=== PATIENT | female | born 1970 | race Caucasian/White ===

== ENCOUNTER 2019-01-18 17:31 | Emergency (ER) | payer SELFPAY ==
[2019-01-18] MEDS: IBUPROFEN 200 MG TAB PO (19:44)
[2019-01-18] MEDS: ACETAMINOPHEN 325 MG TAB PO (19:44)
== END 2019-01-18 20:51 | disposition home or self-care (01) ==
LOC: FTE 17:31
DX: S63.601A Unspecified sprain of right thumb, initial encounter (principal); E11.9 Type 2 diabetes mellitus without complications; X50.1XXA Overexertion from prolonged static or awkward postures, initial encounter; Y92.009 Unspecified place in unspecified non-institutional (private) residence as the place of occurrence of the external cause
CPT/HCPCS: 29130; 73130-RT; 99283-25